=== PATIENT | female | born 1995 | race Caucasian/White ===

== ENCOUNTER → 2016-08-28 | Outpatient (CLI) | payer BC | LOC: BHSO 14:36 | DX: F90.0 Attention-deficit hyperactivity disorder, predominantly inattentive type (principal) ==

== ENCOUNTER → 2016-09-25 | Outpatient (CLI) | payer BC | LOC: BHSO 14:30 | DX: F90.0 Attention-deficit hyperactivity disorder, predominantly inattentive type (principal) ==

== ENCOUNTER → 2016-11-21 | Outpatient (CLI) | payer BC | LOC: BHSO 14:33 | DX: F90.0 Attention-deficit hyperactivity disorder, predominantly inattentive type (principal) ==

== ENCOUNTER → 2017-02-20 | Outpatient (CLI) | payer BC | LOC: BHSO 10:10 | DX: F90.0 Attention-deficit hyperactivity disorder, predominantly inattentive type (principal) ==